=== PATIENT | male | born 1980 | race Caucasian/White ===

== ENCOUNTER 2021-10-10 11:19 | Emergency (ER) | payer OTHER ==
[~2021-10-10] VITALS: Ht 172.7 cm; Wt 72.6 kg
[2021-10-10] MEDS ORDERED: HALOPERIDOL LACTATE 5 MG/1 ML VIAL IM ONE ×2 (11:30→12:45)
[2021-10-10] MEDS ORDERED: diphenhydrAMINE 50 MG/1 ML VIAL IM ONE (11:30)
[2021-10-10] MEDS ORDERED: IV NORMAL SALINE 1000 ML BAG IV ONE (11:30)
[2021-10-10] MEDS ORDERED: LORAZEPAM 2 MG/1 ML VIAL IM ONE (11:30)
[2021-10-10] MEDS ORDERED: HALOPERIDOL LACTATE 5 MG/1 ML VIAL ONE ×2 (11:32→12:46)
[2021-10-10] MEDS ORDERED: diphenhydrAMINE 50 MG/1 ML VIAL ONE (11:32)
[2021-10-10] MEDS ORDERED: LORAZEPAM 2 MG/1 ML VIAL ONE ×2 (11:33→12:47)
[2021-10-10 11:44] LABS: HEMATOCRIT 38.4 % (36.7-47.1); MEAN CORPUSCULAR HEMOGLOBIN 30.3 uug (23.8-33.4); MEAN CORPUSCULAR VOLUME 91.4 fL (73.0-96.2); PLATELET COUNT (AUTO) 335 K/uL (152-348)
[2021-10-10] MEDS ORDERED: TETRACAINE HCL 0.5% OPHT DROP 2 ML BOTTLE OP ONE (11:45)
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
[2021-10-10] MEDS ORDERED: TETRACAINE HCL 0.5% OPHT DROP 2 ML BOTTLE ONE (11:47)
[2021-10-10 11:52] LABS: ETHANOL 293 MG/DL (0-0)
[2021-10-10 12:06] LABS: ALANINE AMINOTRANSFERASE 44 U/L (16-63); ALKALINE PHOSPHATASE 191 U/L (50-136); ASPARTATE AMINOTRANSFERASE 56 U/L (15-37); BILIRUBIN,DIRECT 0.2 mg/dL (0.0-0.2); BILIRUBIN,TOTAL 0.6 mg/dL (0.2-1.0); CARBON DIOXIDE 22 mmol/L (21-32); CHLORIDE 103 mmol/L (98-107); CREATININE 0.9 mg/dL (0.6-1.3); GLUCOSE 91 mg/dL (74-106); TOTAL PROTEIN, SERUM 7.5 g/dL (6.4-8.2); UREA NITROGEN, BLOOD 16 mg/dL (7-18)
[2021-10-10 12:12] LABS: ACETAMINOPHEN < 2.0 ug/mL (10-30)
--- NOTE | 2021-10-10 12:29 | NUR ---
Pt voided on self. Hygiene performed. Pt continues to sleep. In no acute distress at this time.
[2021-10-10] MEDS ORDERED: LORAZEPAM 2 MG/1 ML VIAL IV ONE (12:45)
--- NOTE | 2021-10-10 12:48 | NUR ---
Pt continues to be combative. Medications administered per provider order.
--- NOTE | 2021-10-10 13:00 | NUR ---
Pt voided self. Hygiene provided. Repositioned pt [id number] per protocol. Pt in no acute distress at this time.
--- NOTE | 2021-10-10 13:20 | NUR ---
Removed restraint from LLE.
[2021-10-10] MEDS ORDERED: IV NS + KCL 40 MEQ 1000 ML BAG IV ONE (13:30)
[2021-10-10] MEDS ORDERED: IV NS + KCL 40 MEQ 1000 ML BAG 1,000 ML IV ONE (14:00)
--- NOTE | 2021-10-10 15:00 | NUR ---
Pt sleeping and responding intermitently. Removed restraint from RLE. Pt hygiene performed and repositioned. Will continue to monitor [id number] per restraint protocol. Pt in no acute distress at this time.
--- NOTE | 2021-10-10 15:00 | NUR ---
Hold broken per crisis team evaluation.
--- NOTE | 2021-10-10 15:28 | NUR ---
Pt requested urinal. Was able to use urinal with assistance. Pt continues to be stable but confused and yelling profanities.
--- NOTE | 2021-10-10 15:38 | NUR ---
Clinical Social Work Note SW attempted to met with patient to provide him with alcohol use referrals. SW was unable to speak with patient due to his altered mental status. SW left resources for patient. The resources include: [facility] ([phone]); [facility] [address] [place] [address] ([phone]); [address] [address] ([phone]); [facility] ([phone]); [facility] [place] ([phone]); [facility] ([phone]); [facility] ([phone]). Additionally, [facility]ST[facility] left patient with a homeless packet that includes shelters, hot meals, and hot showers.
--- NOTE | 2021-10-10 16:15 | NUR ---
Pt is less altered and confused no longer deemed a risk to self or others, but continues to be a risk for interfering with treatment and pulling out his own IV. Changed to soft restraints per provider.
--- NOTE | 2021-10-10 17:10 | NUR ---
Pt is becoming slightly more oriented. Promising to not remove his saline lock. States understanding plan to treat hypokalemia. Agrees to complete IV Tx.
--- NOTE | 2021-10-10 17:59 | NUR ---
Pt is more alert and better oriented when responding. Provider aware. Ok to remove final restraint per provider.
--- NOTE | 2021-10-10 18:10 | NUR ---
IV infusion complete. Provider notified. Pt requesting meal try, provided. Pt now resting not wanting to eat meal. Tray left at bedside. Pt denied any pain at this time. Pt in no acute distress.
[2021-10-10] MEDS: MAGNESIUM SULFATE/D5W 100 ML IV SCH ×2 (19:22→19:56)
--- NOTE | 2021-10-10 19:25 | NUR ---
Patient in room laying on gurny easily arousable with no distress noted. Patient selectively answering questions. Provide comfort and saftey measures.
[2021-10-10] MEDS ORDERED: MAGNESIUM SULFATE/D5W 200 ML ONE (19:28)
--- NOTE | 2021-10-11 00:30 | NUR ---
PATIENT SLEEPING ON GURNY WITH NO DISTRESS NOTED.
[2021-10-11 04:35] LABS: CREATININE 0.7 mg/dL (0.6-1.3); POTASSIUM 3.6 mmol/L (3.5-5.1)
[2021-10-11 04:44] LABS: *BILIRUBIN,URIN NEGATIVE (NEGATIVE); *BLOOD, URINE NEGATIVE (NEGATIVE); *CLARITY,URINE CLEAR (CLEAR); *COLOR,URINE YELLOW (YELLOW); *KETONES,URINE NEGATIVE (NEGATIVE); *UROBILINOGEN,URINE 0.2 E.U./dl (NORMAL); LEUKOCYTE ESTERASE ,URINE NEGATIVE (NEGATIVE); NITRITE, URINE NEGATIVE (NEGATIVE); UGLUCOSE NEGATIVE (NEGATIVE)
[2021-10-11 04:58] LABS: *AMPHETAMINE, URINE POSITIVE (NEGATIVE); *CANNABINOID, URINE NEGATIVE (NEGATIVE); *COCCAINE, URINE NEGATIVE (NEGATIVE); *OPIATE, URINE NEGATIVE (NEGATIVE); *PHENCYCLIDINE SCREEN,URINE NEGATIVE (NEGATIVE)
--- NOTE | 2021-10-11 06:02 | NUR ---
IV removed. Catheter intact and site benign. Pressure and 4x4 gauze applied to site. No bleeding noted.
--- NOTE | 2021-10-11 06:09 | NUR ---
PATIENT AMBULATED WITH STEADY GAIT IN THE HALLWAY. TOLERATED PO INTAKE WITH NO N/V.
--- NOTE | 2021-10-11 06:54 | NUR ---
Patient given written and verbal discharge instructions. Patient verbalizes understanding of instructions. Patient is ambulatory with steady gait. Refuses offer of [facility] placement. Patient given list of available shelters in surrounding area.
[2021-10-11 06:55] VITALS: BP 155/88
== END 2021-10-11 06:56 | disposition home or self-care (01) ==
LOC: EDBD 11:19 → ER 11:19
DX: R41.82 Altered mental status, unspecified (principal); R45.1 Restlessness and agitation; F10.129 Alcohol abuse with intoxication, unspecified; E87.6 Hypokalemia; F15.10 Other stimulant abuse, uncomplicated; Y90.0 Blood alcohol level of less than 20 mg/100 ml; Z20.822 Contact with and (suspected) exposure to COVID-19
CPT/HCPCS: 36415; 80048 ×2; 80076; 80299; 80307 ×2; 80320; 81003; 82550; 85025; 87426; 93005; 96361; 96365; 96366; 96372 ×4; 96375; 99291; J1200; J1630 ×2; J2060 ×2; J3475; U0003; A4663; G0480; J7030